=== PATIENT | male | born 1950 | race Caucasian/White ===

== ENCOUNTER 2023-03-05 13:58 | Inpatient (IN) | payer MEDICARE, BC ==
[~2023-03-05] VITALS: Ht 177.8 cm; Wt 72.2 kg
[2023-03-13] VITALS (10 sets, daily range): BP systolic 103–148; BP diastolic 47–68; PULSE 73–121; TEMP 97.2–98.4
[2023-03-13] MEDS ORDERED: LR 1,000 ML IV SCH ×2 (06:00→16:15)
[2023-03-13] MEDS ORDERED: Rocuronium 50 MG/5 ML Multi-Dose VIAL ONE (11:28)
[2023-03-13] MEDS ORDERED: Midazolam 2 MG/2 ML VIAL ONE (11:28)
[2023-03-13] MEDS ORDERED: Lidocaine PF 2% (20 MG/ML) 5 ML VIAL ONE (11:29)
[2023-03-13 12:09] LABS: MEAN CELL VOLUME 97 fl (80.0-100.0); MEAN CORPUSCULAR HEMOGLOBIN 33 pg (27-31); MEAN CORPUSCULAR HGB CONC 34 g/dl (33.0-37.0); MEAN PLATELET VOLUME 9.1 fl (7.4-10.4); PLATELET COUNT 246 K/mm3 (130-400); RED BLOOD COUNT 3.33 M/mm3 (4.20-5.60); REDCELL DISTRIBUTION WIDTH-CV 12.9 % (11.5-14.5)
[2023-03-13 12:10] LABS: HEMATOCRIT 32.4 % (42.0-52.0)
[2023-03-13] MEDS ORDERED: NS 30 ML IV ONE (12:19)
[2023-03-13] MEDS ORDERED: dexAMETHasone 10 MG/ML VIAL ONE ×2 (12:19→13:32)
[2023-03-13 12:28] LABS: ALBUMIN 3.7 gm/dL (3.4-4.8); BILIRUBIN,TOTAL 0.5 mg/dL (0.2-1.2); CREATININE, serum 0.85 mg/dL (0.72-1.25); POTASSIUM 4.3 mmol/L (3.5-4.5); TOTAL PROTEIN 6.9 gm/dL (6.2-8.1)
[2023-03-13] MEDS ORDERED: Celecoxib 200 MG CAP PO SCH (12:30)
[2023-03-13] MEDS ORDERED: metroNIDAZOLE 500 MG/100 ML IVPB IV SCH (12:30)
[2023-03-13] MEDS ORDERED: Gabapentin 100 MG CAP PO SCH (12:30)
[2023-03-13] MEDS ORDERED: Acetaminophen 500 MG TAB PO SCH ×2 (12:30→17:03)
[2023-03-13] MEDS ORDERED: PRIL40 PO (12:43)
[2023-03-13] MEDS ORDERED: NORVASC 10MG10 MG PO (12:43)
[2023-03-13] MEDS ORDERED: MASON NATURAL2000 IU PO (12:44)
[2023-03-13] MEDS ORDERED: FLOMAX 0.40.4 MG/CAP PO (12:44)
[2023-03-13] MEDS ORDERED: NP THYROID60 MG PO (12:44)
[2023-03-13] MEDS ORDERED: Ondansetron 4 MG/2 ML VIAL ONE (13:32)
[2023-03-13] MEDS ORDERED: Topical Skin Adhesive 1 EACH (1 ML) TOP ONE (13:50)
[2023-03-13] MEDS ORDERED: Meperidine 50 MG/ML 1 ML VIAL IV PRN (14:00)
[2023-03-13] MEDS ORDERED: HYDROmorphone 2 MG/1 ML VIAL IV PRN (14:00)
[2023-03-13] MEDS ORDERED: fentaNYL 50 MCG/ML 2 ML VIAL IV PRN (14:00)
[2023-03-13] MEDS ORDERED: droPERidol 2.5 MG/ML 2 ML VIAL IV PRN (14:00)
[2023-03-13] MEDS ORDERED: Morphine 4 MG/ML VIAL IV PRN ×3 (14:00→16:15)
[2023-03-13] MEDS ORDERED: Ondansetron 4 MG/2 ML VIAL IV PRN ×2 (14:00→16:15)
[2023-03-13] MEDS ORDERED: Phenylephrine 10 MG/ML VIAL ONE (14:02)
[2023-03-13] MEDS ORDERED: ePHEDrine 50 MG/ML VIAL ONE (14:21)
[2023-03-13] MEDS ORDERED: fentaNYL 50 MCG/ML 2 ML VIAL ONE (15:47)
[2023-03-13] MEDS ORDERED: oxyCODONE 5 MG TAB PO PRN (16:15)
[2023-03-13] MEDS ORDERED: Ibuprofen 400 MG TAB PO PRN (16:15)
[2023-03-13] MEDS ORDERED: Naloxone 0.4 MG/ML VIAL IV PRN (16:15)
--- NOTE | 2023-03-13 17:20 | NUR ---
PATIENT ADMITED INTO ROOM 349 POSTOP. ORIENTED BUT VERY SEDATED/DROWSY POSTOP. NOTED IRREGULAR, ELEVATED HR RANGING FROM 98-118 ON TELE. 02 @ 3L PER NC WITH SATS IN MID TO UPPER 90'S. ALL OTHER VSS. NO COMPLAINTS OF PAIN OR NAUSEA. IV FLUIDS INFUSING INTO RIGHT FORARM IV. MARCOS TO DD. SCD'S TO BLE. HEAD TO TOE ASSESSMENT COMPLETE. FAMILY AT BEDSIDE. ORIENTED TO ROOM. CALL LIGHT IN REACH.
--- NOTE | 2023-03-13 20:23 | NUR ---
PT IN BED, DROWSY, ASKS IF ITS MARCH. RE-ORIENTED TO PLACE AND TIME. IVF TO RFA INFUSING WITHOUT PROBLEM. HAS MARCOS TO BSD WITH YELLOW URINE. HAS ABD LAP SITES X5 AND SMALL MIDLINE ALL GLUED AND DRY. TELEMETRY AND EKG BOTH SHOW AFIB. PT ON CLEAR LIQUID DIET, WILL ADVANCE TOLERATED AND MORE AWAKE. DENIES PAIN AT THIS TIME.
--- NOTE | 2023-03-13 22:06 | NUR ---
PT MORE AWAKE, HAS TV ON. TAKES SCHEDULED ES TYLENOL WITHOUT PROBLEM. DENIES PAIN AT THIS TIME.
[2023-03-14] VITALS (10 sets, daily range): BP systolic 112–149; BP diastolic 54–71; PULSE 55–81; TEMP 97.4–98.5
--- NOTE | 2023-03-14 02:00 | NUR ---
PT EATING JELLO, NO REPORTS OF PAIN, STATES "JUST SORE".
--- NOTE | 2023-03-14 04:00 | NUR ---
PT AWAKE, EATING PUDDING WITHOUT PROBLEM. INCREASED DIET TO FULL LIQUIDS/BLENDERIZED. NO N/V.
[2023-03-14] MEDS ORDERED: Omeprazole 40 MG **** subs to Pantoprazole 40 MG PO SCH (07:00)
[2023-03-14 07:02] LABS: HEMOGLOBIN 10.8 g/dl (13.5-18.0)
[2023-03-14 07:25] LABS: CALCIUM 8.8 mg/dL (8.4-10.2); CREATININE, serum 0.91 mg/dL (0.72-1.25); MAGNESIUM 1.8 mg/dL (1.6-2.6); PHOSPHOROUS 3.3 mg/dL (2.3-4.7); POTASSIUM 4.2 mmol/L (3.5-4.5)
--- NOTE | 2023-03-14 08:00 | NUR ---
PT RESTING IN BED WITH NO PAIN AT THIS TIME. NANDINI CALLED TO NOTIFY PT CONVERTED BACK TO SINUS RYTHEM FROM AFIB THIS AM AT 0755. JAGDEEP PIZARRO AND DR. CALDERA NOTIFIED. CARDIOLOGY CONSULTED. DEIT ADVANCED TO GENERAL AND TOLERATING WELL. WILL CONTINUE TO [facility].
[2023-03-14] MEDS ORDERED: amLODIPine 10 MG TAB PO SCH (09:00)
[2023-03-14] MEDS ORDERED: Thyroid, Desiccated 60 MG TAB PO SCH (09:00)
--- NOTE | 2023-03-14 10:55 | NUR ---
restuarant crew worker and Student Karlene met with pt to discuss discharge planning. Pt reports he lives in [place] with his , Divina. He sees Dr. Butt and obtains medications from [facility] with no difficulties. He has his daughter, Uma Colby [phone] listed as a contact. Pt would like to complete a DPOA-HC listing his daughter. SW and Student witnessed signature. Original and copies provided. Copy in the chart. Pt reports he has needed assistance with ADLS and has a FWW at home for DME. SW went over PT reccomendations for a FWW and SNF. Pt reports he has a FWW at home and is fine with using this. Pt reported to GARDENIA he has been to [facility] in the past for two months and would like to return. GARDENIA provided the Medicare.gov list. GARDENIA informed she will send his information there. GARDENIA called REENA, Uma and discussed SNF stay. She reports pt has never been to [facility] for rehab, but would like him to go. She confirmed patient does have a FWW at home to utilize. GARDENIA asked about contact information for , Divina. She informed SW that Divina has memory problems and is ill so she is not a good point of contact. GARDENIA informed dtr that pt listed her as primary for DPOA-HC. GARDENIA Student sent [facility] referral via fax. Discharge Plan: SNF
[2023-03-14] MEDS ORDERED: Magnesium Sulfate 1 GM/100 ML IV Soln IV SCH (11:00)
--- NOTE | 2023-03-14 16:36 | NUR ---
SW was notified patient is able to go to [facility] for SNF on Saturday, unable to transfer on weekend. [facility] is requesting family cigar packer and picker paperwork to complete for them. SW was notified by patient's nurse patient is looking at discharge on Saturday. SW was contacted by patient's daughter, Uma. Uma stated she would go cigar packer and picker paperwork from the [facility] to complete with the patient. [facility] notified the director social welfare that patient will need a DPOA-HC on file. will fax the one completed earlier to [facility] tomorrow. [facility] wanted to know if the family wanted to transport or if they wanted the facility to transport. Discharge plan: SNF
[2023-03-15] VITALS (12 sets, daily range): BP systolic 103–181; BP diastolic 67–86; PULSE 40–77; TEMP 97.3–97.9
[2023-03-15 06:28] LABS: BASO % 0.1 % (0.0-2.0); GRAN # 11.4 K/mm3 (1.4-6.5); GRAN % 86.6 % (42.2-75.2); HEMOGLOBIN 12.3 g/dl (13.5-18.0); LYMPH # 0.7 K/mm3 (1.2-3.4); LYMPH % 5.2 % (20.0-51.0); MEAN CELL VOLUME 98 fl (80.0-100.0); MEAN CORPUSCULAR HEMOGLOBIN 33 pg (27-31); MEAN CORPUSCULAR HGB CONC 34 g/dl (33.0-37.0); MEAN PLATELET VOLUME 9.2 fl (7.4-10.4); MONO % 7.7 % (1.7-9.3); RED BLOOD COUNT 3.74 M/mm3 (4.20-5.60); REDCELL DISTRIBUTION WIDTH-CV 13.1 % (11.5-14.5)
[2023-03-15 06:32] LABS: HEMATOCRIT 36.6 % (42.0-52.0)
[2023-03-15 06:33] LABS: PLATELET COUNT 389 K/mm3 (130-400)
[2023-03-15 06:49] LABS: CALCIUM 9.1 mg/dL (8.4-10.2); CREATININE, serum 0.77 mg/dL (0.72-1.25); POTASSIUM 3.9 mmol/L (3.5-4.5)
[2023-03-15 07:08] LABS: MAGNESIUM 1.9 mg/dL (1.6-2.6)
[2023-03-15 07:28] LABS: TSH w REFLEX 5.654 uIU/mL (0.350-4.940)
--- NOTE | 2023-03-15 08:01 | NUR ---
NURSING SHIFT ASSESSMENT COMPLETED. THE PATIENT IS VERY FORGETFUL, CONFUSED ON WHAT TIME IT IS AND DOES SET THE BED ALARM OFF FREQUENTLY. THE PATIENT DOES HAVE A POOR APPETITE. NO N/V NOTED. SOTALOL ORDERED FOR 10 PM. QTC 446 AND AN EKG IS ORDERED FOR IN THE MORNING. THE PATIENT IS CURRENTLY SR. BED IN LOW POSITION, BED ALARM ON, CALL LIGHT WITHIN REACH.
--- NOTE | 2023-03-15 08:27 | NUR ---
PT RESTING IN BED WITH NO PAIN. WEAK AND UNSTEADY GAIT WITH 1 ASSIST AND WALKER TO [facility]. PT A/O X4 BUT IMPULSIVE. BED ALARM ON. DRY SCABS ON PT UPPER BACK. HR IRREGULAR. WILL CONTINUE TO MONITOR.
--- NOTE | 2023-03-15 10:38 | NUR ---
Several visit attempts; Patient continued to sleep. Corporate Development Officer left card offering God's blessings and information regarding the availability of Spiritual Care at [facility].
--- NOTE | 2023-03-15 16:59 | NUR ---
leather production worker contacted patient's family to discuss patient's plan for after SNF. Patient's daughter expressed it will determine how he does at SNF but he has been falling more frequently at home and they are concerned he may need LTC. GARDENIA expressed she would be completing a Care Assessment in case patient is staying longer than 30 days at [facility]. Uma, patient's daughter, denied patient expressing any depression recently. Uma reports patient has fallen about 1-2 times a week for the last 6 months. No mental health diagnosis. GARDENIA met with patient and completed a CARE assessment with him for his stay at the [facility]. Patient signed one form and requested his daughter sign the other form as he had difficulty signing this form. GARDENIA met with patient's daughter/DPOA-, whom signed the release for the hospital to speak with the [facility] on aging. GARDENIA was notified Uma obtained the packet from [facility] to complete and she would turn it into them. Uma reports [facility] would need to fish bait picker patient at 9 am on Saturday as that was the only time they have transportation available otherwise they would need to fish bait picker on Saturday. GARDENIA notified the PA of this infomration. Discharge plan: SNF
[2023-03-16] VITALS (396 sets, daily range): BP systolic 5–158; BP diastolic 44–85; PULSE 36–80; TEMP 34.6–34.8; O2SAT 57–100
--- NOTE | 2023-03-16 01:12 | NUR ---
PT MOVED TO ROOM 326 TO BE CLOSER TO NURSES STATION DUE TO NIGHT TIME CONFUSION.
[2023-03-16] MEDS ORDERED: LR 1,000 ML IV SCH ×2 (05:45→16:15)
[2023-03-16 06:26] LABS: HEMATOCRIT 37.1 % (42.0-52.0); HEMOGLOBIN 12.9 g/dl (13.5-18.0); MEAN CELL VOLUME 95 fl (80.0-100.0); MEAN CORPUSCULAR HEMOGLOBIN 33 pg (27-31); MEAN CORPUSCULAR HGB CONC 35 g/dl (33.0-37.0); MEAN PLATELET VOLUME 9.7 fl (7.4-10.4); PLATELET COUNT 381 K/mm3 (130-400); RED BLOOD COUNT 3.89 M/mm3 (4.20-5.60)
--- NOTE | 2023-03-16 06:45 | NUR ---
THIS RN CONTACTED BY PT'S ATTENDING NURSE, DENNIS. CONCERN FOR AMS, LETHARGY, AND DIAPHORESIS. HOSPITALIST, PINKY, AND SUPERINTENDENT GREENS, MYRON, NOTIFIED BY THIS RN. SEE CRITICAL ASSESSMENT TEAM RECORD.
[2023-03-16 06:46] LABS: CALCIUM 9.4 mg/dL (8.4-10.2); CREATININE, serum 1.44 mg/dL (0.72-1.25); POTASSIUM 4.4 mmol/L (3.5-4.5)
--- NOTE | 2023-03-16 07:10 | NUR ---
PT with increased O2 needs this am, up to 4L, lethargic, diaphoretic, HR low, having moderate amt of black liquid regurg in back of throat. Dr Tay notified per phone, IVF ordered and made NPO. zofran given IV for nausea. EKG this am showing HB, increased SOB, pt unable to cough out secretions, too weak, this RN concerned pt may need closer monitoring, CAT called. RN DIGESTIVE Wayne Walls PA and housecleaner floor Ariane GARCIA, all to bedside,will cont. to monitor.
[2023-03-16 07:44] LABS: BAND 6 % (0-10); LYMPHOCYTE 7 % (20.0-51.0); NEUTROPHILS 79 % (42.0-75.2)
--- NOTE | 2023-03-16 08:00 | NUR ---
PATIENT IS CONFUSED AND DROWSY. PATIENT RESPONDS TO VERBAL STIMULI BUT OFTEN GIVES THE SAME "YES" RESPONSE TO MOST QUESTIONS. NOTED IRREGULAR HR WITH BRADYCARDIA IN THE 40'S ON TELE. PATIENT HAS HX OF A-FIB AND HAD A LOOP RECORDER PLACED YESTERDAY. HE IS ALSO REPORTED TO BE ON DAY 3 OF SOTOLOL. 02 @ 4L PER NC WITH SATS IN LOW 90'S. PATIENT'S LUNG SANCHEZ ARE COURSE WITH WET/WEAK COUGH. SUCTION PRN. NOTED RESP OF 22 AND DYSPNEA WITH ACTIVITY. REPOSITIONED PATIENT UP IN BED. IDENTIFICATION PRINTING MACHINE SETTER REPORTED CONFUSION OVER NIGHT AND DARK EMESIS. NPO. IV FLUIDS INFUSING VIA PUMP INTO RIGHT FORARM IV. MARCOS TO DD WITH SMALL AMOUNTS OF URINE NOTED. HEAD TO TOE ASSESSMENT COMPLETE. SCD'S TO BLE. CALL LIGHT IN REACH. BED ALARM ON. NO FAMILY AT BEDSIDE.
--- NOTE | 2023-03-16 08:30 | NUR ---
NOTIFIED HOSPITALIST ABOUT DARK EMESIS AND NPO STATUS OVER NIGHT. HOLDING AM MEDS UNTIL SURGEON SEE'S PATIENT PER . HOSPITALIST TO ROUND SOON, AWAITING ORDERS.
--- NOTE | 2023-03-16 09:50 | NUR ---
RADIOLOGY AT BEDSIDE TO OBTAIN CXR
--- NOTE | 2023-03-16 10:00 | NUR ---
16F MARCOS PLACED WITH SOME DIFFICULTY GETTING THROUGH THE PROSTATE PATIENT WAS BEARING DOWN DURING PLACEMENT. PATIENT REMAINS CONFUSED. NOTED SMALL AMOUNTS OF PINK TINGED URINE, UA SENT PER ORDERS.
[2023-03-16 11:01] LABS: PH 5.5 (5.0-8.5); URINE APPEARANCE Cloudy (CLEAR/HAZY); URINE BLOOD 3+ (NEGATIVE); URINE COLOR Red (YELLOW); URINE GLUCOSE Negative (NEGATIVE); URINE KETONE Negative (NEGATIVE); URINE NITRATE Negative (NEGATIVE); URINE PROTEIN(semi-quant) 2+ (BEGATIVE); URINE UROBILINOGEN 0.2 E.U/dL (0.2-1.0)
--- NOTE | 2023-03-16 11:20 | NUR ---
NOTIFIED SURGEON MARKET CONSULTANT WITH PATIENT STATUS UPDATE. AWAITING RETURN CALL AND/OR ROUNDS.
[2023-03-16 11:24] LABS: URINE RBC >50 /hpf (0-2)
[2023-03-16 11:25] LABS: COLLECTION METHOD CLEAN CATCH
--- NOTE | 2023-03-16 11:50 | NUR ---
SPOKE WITH , SEE NEW ORDERS. CONTACT BUTADIENE CONVERTER OPERATOR TO ARRANGE EMS TRANSPORT TO [facility] FOR CT SCAN. BUTADIENE CONVERTER OPERATOR TO ARRANGE TRANSPORT.
--- NOTE | 2023-03-16 12:45 | NUR ---
EMS HERE AND PATIENT TRANSPORTED TO [facility] FOR CHEST/ABD/PELVIC CT. PATIENT NOW OFF FLOOR.
--- NOTE | 2023-03-16 13:10 | NUR ---
RN AND CHARGE NURSE AT BEDSIDE TO PLACE NG PER , RIGHT BEFORE INSERTING THE RADIOLOGIST NOTIFIED RN DIRECTLY FOR CONCERNS OF A RUQ INTERNAL HERNIA & SIGNIFICANT BOWL OBSTRUCTION WITH SEVERE ABD DISTENTION. RADIOLOGIST CONTINUES TO SAY PATIENT IS VERY HIGH RISK FOR ASPIRATION HE IS FULL OF FLUID & FREE AIR ALL THE WAY UP TO HIS ESOPHAGUS. RN'S STOPPED AND CALLED SURGEON. SURGEON CALL RADIOLOGIST DIRECTLY. PLANS FOR EMERGENT SURGERY. CALLED IN OR TEAM AND PATIENT FAMILY UPDATED BY RN AND . SEE NEW ORDERS.
[2023-03-16] MEDS ORDERED: Rocuronium 50 MG/5 ML Multi-Dose VIAL ONE ×3 (14:11→16:17)
[2023-03-16] MEDS ORDERED: fentaNYL 50 MCG/ML 2 ML VIAL ONE (14:11)
[2023-03-16] MEDS ORDERED: Ondansetron 4 MG/2 ML VIAL ONE (14:11)
[2023-03-16] MEDS ORDERED: Lidocaine PF 2% (20 MG/ML) 5 ML VIAL ONE (14:11)
[2023-03-16] MEDS ORDERED: Succinylcholine PF 100 MG/5 ML SYRINGE/POLY AMP IV ONE (14:11)
--- NOTE | 2023-03-16 14:15 | NUR ---
PATIENT GOING DOWN TO OR VIA BED. FAMILY AT BEDSIDE. CONSENT ON CHART. PRE-OP FLUIDS AND IV ABX INFUSING INTO RIGHT FORARM IV.
[2023-03-16] MEDS ORDERED: ePHEDrine 50 MG/ML VIAL ONE (16:11)
--- NOTE | 2023-03-16 16:11 | NUR ---
RN NOTIFIED OF TRANSFER TO ICU POSTOP. CALLED ICU CHARGE TO GIVE REPORT BUT UNAVAILABLE AT THIS TIME AND WILL CALL BACK FOR REPORT SHORTLY.
--- NOTE | 2023-03-16 16:50 | NUR ---
GEORGINA IN ICU CALLED BACK, REPORT GIVEN. PATIENT PERSONAL BELONGINGS TO ICU BED 1
[2023-03-16] MEDS ORDERED: NS 1,000 ML IV SCH (17:00)
[2023-03-16] MEDS ORDERED: fentaNYL 50 MCG/ML 2 ML VIAL IV PRN (17:15)
[2023-03-16] MEDS ORDERED: Naloxone 0.4 MG/ML VIAL IV PRN (17:15)
[2023-03-16] MEDS ORDERED: fentaNYL 100 ML IV SCH (17:15)
[2023-03-16] MEDS ORDERED: LR 500 ML IV ONE (18:30)
--- NOTE | 2023-03-16 18:30 | NUR ---
Patient brought over by PACU after a reduction of an internal hernia; patient was brought over on ventilator and was sedated. Patient was accompanied by KIMBERLEY Phillips, and two PACU/OR nurses. Patient's ET tube was approx 24 at the teeth and [facility] set up ventilator and attached patient to vent; per Dr. Silverio, patient's G-tube was set to LIS. Patient came over with a Olsen catheter in place and a peripheral INT. Patient had central line placed over in the OR in the right internal jugular; ART line was attempted but ultimately not able to be placed. Patient was hypothermic upon arrival and a rectal temp probe was inserted and patient placed on warmer. Patient also started on fent and prop for sedation. Upon starting sedation patient's blood pressure dropped; fluid bolus was initiated to maintain blood pressure. Patient's vital signs were otherwise within normal limits.
--- NOTE | 2023-03-16 19:37 | NUR ---
THIS RN SPOKE WITH PATIENT'S DAUGHTER KIM. CONFIRMED CODE STATUS DNR WITH AIRWAY MANAGEMENT/INTUBATION. FAMILY DOES NOT WANT PATIENT TO RECEIVE CPR/CHEST COMPRESSIONS. VERIFIED BY RADHA ERICKSON. HOSPITALIST, PINKY, NOTIFIED. ORDER CHANGED.
--- NOTE | 2023-03-16 19:38 | NUR ---
BIJU confirmed as daughter, Uma. Second point of contact is her , Hang Colby. His number is [phone].
--- NOTE | 2023-03-16 19:40 | NUR ---
Received report from RADHA Ha. Patient resting quietly in bed. Remains on ventilator, tolerating well. Vitals within normal limits; he is finishing a 500mL fluid bolus at this time. Continues to receive fentanyl and propofol drips, see IV drip titrations.
[2023-03-16 20:44] LABS: ARTERIAL BLD GAS O2 SATURATION 99.2 % (92-100); ARTERIAL BLD GAS TCO2 CT 27.5; ARTERIAL BLOOD GAS HCO3 26.5 meq/L (22-26); ARTERIAL BLOOD GAS PCO2 32.4 mmHg (35-45); ARTERIAL BLOOD GAS PO2 223.6 mmHg (80-100); ARTERIAL BLOOD GAS pH 7.53 (7.35-7.45)
[2023-03-16] MEDS ORDERED: Dextrose 50% Water 25 GM/50 ML SYRINGE IV PRN (20:45)
[2023-03-16] MEDS ORDERED: Dextrose (Glucose) 15 GM (4 x 3.75 GM) Chewable TABLET PACK PO PRN (20:45)
[2023-03-16] MEDS ORDERED: Glucagon 1 MG VIAL IM PRN (20:45)
--- NOTE | 2023-03-16 21:30 | NUR ---
Patient's temperature up to 98.1F. Bear hugger taken off at this time.
[2023-03-16 22:31] LABS: ARTERIAL BLD GAS O2 SATURATION 95.2 % (92-100); ARTERIAL BLD GAS TCO2 CT 28.5; ARTERIAL BLOOD GAS HCO3 27.4 meq/L (22-26); ARTERIAL BLOOD GAS PCO2 36.6 mmHg (35-45); ARTERIAL BLOOD GAS PO2 78.4 mmHg (80-100); ARTERIAL BLOOD GAS pH 7.49 (7.35-7.45)
[2023-03-17] VITALS (991 sets, daily range): BP systolic 100–119; BP diastolic 49–59; PULSE 54–62; TEMP 99–99.9; O2SAT 82–100
[2023-03-17] MEDS ORDERED: Insulin Aspart (NovoLOG) SQ SCH
[2023-03-17] MEDS ORDERED: LR 1,000 ML IV ONE (00:30)
[2023-03-17 05:00] LABS: MEAN CORPUSCULAR HGB CONC 33 g/dl (33.0-37.0); MEAN PLATELET VOLUME 9.6 fl (7.4-10.4); RED BLOOD COUNT 2.79 M/mm3 (4.20-5.60); REDCELL DISTRIBUTION WIDTH-CV 13.5 % (11.5-14.5)
[2023-03-17 05:03] LABS: HEMATOCRIT 27.9 % (42.0-52.0); HEMOGLOBIN 9.3 g/dl (13.5-18.0); MEAN CELL VOLUME 100 fl (80.0-100.0); MEAN CORPUSCULAR HEMOGLOBIN 33 pg (27-31); PLATELET COUNT 228 K/mm3 (130-400)
[2023-03-17 05:14] LABS: GASTROCCULT POSITIVE; pH GASTRIC CONTENTS 4
--- NOTE | 2023-03-17 05:15 | NUR ---
PT RESPONDING TO PAINFUL STIMULI. PT QUICKLY RESPONDED TO SMALL SEDATION TITRATION BY FLEXING LEGS; LEGS WERE STIFF AND PT NOTED TO BE GRIMACING. NO FURTHER SEDATION VACATION ATTEMPTED.
[2023-03-17 05:17] LABS: CALCIUM 7.9 mg/dL (8.4-10.2); CREATININE, serum 1.99 mg/dL (0.72-1.25); MAGNESIUM 1.8 mg/dL (1.6-2.6); POTASSIUM 4.3 mmol/L (3.5-4.5)
[2023-03-17 05:40] LABS: BAND 4 % (0-10); LYMPHOCYTE 6 % (20.0-51.0); NEUTROPHILS 81 % (42.0-75.2); PLATELET ESTIMATE NORMAL (NORMAL)
[2023-03-17 05:41] LABS: HYPOCHROMIA 1+
--- NOTE | 2023-03-17 07:00 | NUR ---
Report received from RADHA Valentine; patient currently sedated on ventilator with fent and prop running along with fluids through his right IJ. Patient has a peripheral INT, Olsen catheter, G-tube, and an ET tube in place as well; no other lines or tubes are in place at this time. Patient is also on levophed as he has been hypotensive; patient has remained in a sinus rhythm this morning, at times bradycardic in the 50s. Patient is no longer hypothermic and is no longer on the warmer. Patient is responsive but does not follow commands.
[2023-03-17] MEDS ORDERED: Heparin 5,000 UNITS/ML 1 ML VIAL SQ SCH (08:00)
[2023-03-17 10:15] LABS: ARTERIAL BLD GAS O2 SATURATION 91.4 % (92-100); ARTERIAL BLD GAS TCO2 CT 28.5; ARTERIAL BLOOD GAS BASE EXCESS 3.2 (-2-2); ARTERIAL BLOOD GAS HCO3 27.3 meq/L (22-26); ARTERIAL BLOOD GAS PCO2 39.8 mmHg (35-45); ARTERIAL BLOOD GAS PO2 63.1 mmHg (80-100); ARTERIAL BLOOD GAS pH 7.45 (7.35-7.45)
[2023-03-17] MEDS ORDERED: Magnesium Sulfate 4% 50 ML IV ONE (10:15)
[2023-03-17] MEDS ORDERED: 1: LR 1,000 ML 2: NS 1,000 ML IV SCH (10:15)
--- NOTE | 2023-03-17 17:15 | NUR ---
Put patient's sedation on standby to assess responsiveness and ability to follow commands; patient responds to voice and tries to open eyes, however, patient does not appropriately follow commands and appears agitated when sedation is decreased.
--- NOTE | 2023-03-17 20:00 | NUR ---
PT RESTING IN BED AND IV FLUIDS, MEDS AND VENT SETTINGS ARE NOTED PER REPORT. PT IS ABLE TO OPEN EYES AT THIS TIME TO RAISED VOICE, BUT UNABLE TO FOLLOW COMMANDS. KNEES ARE NOTED TO BE RAISED UP AND REMAIN THERE. VSS AND ASSESSMENTS COMPLETED AT THIS TIME. LAP SITES X 5 REPORTED AND 4 WERE VISUALIZED TO BE PIPE FITTER AND WELL APPROXIMATED. 1 LAP SITE REPORTED UNDER CLEAN GUAZE DRESSING FOR MIDLINE INCISION. BED IN LOW POSITION, CALL LIGHT WITHIN REACH, AND RT AT BEDSIDE.
--- NOTE | 2023-03-17 22:39 | NUR ---
AT 2220 PT O2 SAT NOTED TO BE IN THE 80'S. SUCTIONING PROVIDED AND RT CALLED FOR ASSISTANCE. PT NOTED TO BE BITING ON THE ET TUBE AND OPENING EYES AT THIS TIME. PROPOFOL TITRATED PER ORDERS. PT REPOSITIONED TO SUPINE POSITION, BUT RAISES LEGS AND TURNS TO LEFT SIDE ON HIS OWN. WILL CONTINUE TO TURN PT Q2 HRS
[2023-03-18] VITALS (685 sets, daily range): BP systolic 104–154; BP diastolic 45–69; PULSE 62–134; TEMP 98.8–100.4; O2SAT 66–100
[2023-03-18 04:40] LABS: MEAN CELL VOLUME 98 fl (80.0-100.0); MEAN CORPUSCULAR HGB CONC 34 g/dl (33.0-37.0); MEAN PLATELET VOLUME 10.1 fl (7.4-10.4); PLATELET COUNT 186 K/mm3 (130-400); RED BLOOD COUNT 2.66 M/mm3 (4.20-5.60); REDCELL DISTRIBUTION WIDTH-CV 13.6 % (11.5-14.5)
[2023-03-18 04:45] LABS: HEMATOCRIT 26.1 % (42.0-52.0); HEMOGLOBIN 8.8 g/dl (13.5-18.0); MEAN CORPUSCULAR HEMOGLOBIN 33 pg (27-31)
[2023-03-18 04:54] LABS: CALCIUM 7.8 mg/dL (8.4-10.2); CREATININE, serum 1.22 mg/dL (0.72-1.25); MAGNESIUM 2.2 mg/dL (1.6-2.6); POTASSIUM 3.6 mmol/L (3.5-4.5)
[2023-03-18] MEDS ORDERED: Acetaminophen 325 MG TAB PO PRN (05:00)
[2023-03-18] MEDS ORDERED: *Potassium Replacement Protocol MC SCH (05:30)
[2023-03-18] MEDS ORDERED: Potassium Chloride 100 ML IV SCH (05:30)
[2023-03-18 05:38] LABS: BAND 17 % (0-10); EOSINOPHIL 1 % (0-4); LYMPHOCYTE 5 % (20.0-51.0); NEUTROPHILS 76 % (42.0-75.2); PLATELET ESTIMATE NORMAL (NORMAL)
--- NOTE | 2023-03-18 06:04 | NUR ---
PT'S PULSE INCREASING TO THE 140'S, O2 SAT IS 88-91%. PT IS RESTLESS WITH LEGS MOVING UP AND DOWN IN THE BED. HE IS ALERT, BUT UNABLE TO FOLLOW COMMANDS. NO CHANGE IN VITALS WITH TALKING OR CALMING TECHNIQUES AT THIS TIME. PROPOFOL AND FENTANYL RESTARTED TO ASSIST WITH VITALS.
--- NOTE | 2023-03-18 06:44 | NUR ---
PLACED PT IN CPAP 5 PS 5. 50%.
--- NOTE | 2023-03-18 07:00 | NUR ---
Report received from RADHA Lopez; patient currently on weaning trial with vent on CPAP mode; patient was left on minimal amount of fentanyl as patient was not tolerating the trial. Patient becoming increasingly restless as report is being given and heart rate has become very labile. Patient's blood pressure is also going up and patient is opening eyes but not following commands, nor does patient respond to calming techniques. Will order EKG to check rhythm. Patient still has G-tube in place, as well as Olsen catheter; patient's peripheral INT and right IJ also remain in place.
--- NOTE | 2023-03-18 07:40 | NUR ---
PLACED PT BACK IN AC PREVIOSU SETTING. PT IN AFB RVR.
[2023-03-18] MEDS ORDERED: D5LR 1,000 ML IV SCH (09:00)
[2023-03-18] MEDS ORDERED: Amiodarone 450 MG in D5W Excel 250 ML IV SCH ×2 (09:00→14:50)
[2023-03-18 12:21] LABS: PHOSPHOROUS 2.3 mg/dL (2.3-4.7)
[2023-03-18] MEDS ORDERED: MULTIVITAMINS FOLIC ACID IV SCH (16:00)
[2023-03-18] MEDS ORDERED: [UNRECOGNIZED DRUG - OTHER] IV SCH (16:00)
[2023-03-18] MEDS ORDERED: TPN IV SCH ×2 (16:00)
[2023-03-18] MEDS ORDERED: THIAMINE IV SCH (16:00)
--- NOTE | 2023-03-18 17:30 | NUR ---
Sedation vacation attempted this afternoon with the same results as this morning. Patient wakes up and is alert but will not follow commands.
[2023-03-18 21:12] LABS: GASTROCCULT NEGATIVE; pH GASTRIC CONTENTS 4
[2023-03-19] VITALS (368 sets, daily range): BP systolic 101–154; BP diastolic 47–62; PULSE 61–86; TEMP 99–101.1; O2SAT 56–100
--- NOTE | 2023-03-19 05:15 | NUR ---
PATIENT IS OVER BREATHING VENTILATOR, SPO2 DROPPED TO 84%
--- NOTE | 2023-03-19 05:33 | NUR ---
CURRENTLY ATTEMPTING TO DECREASE PT SEDATION. PT AT ONE POINT GOT DOWN TO 79% SPO2 DUE TO OVERBREATING THE VENT. PT NOW SITTING AT 94%, ONLY OCCAISIONALLY OVER BREATHING.
[2023-03-19 06:22] LABS: MEAN CELL VOLUME 102 fl (80.0-100.0); MEAN CORPUSCULAR HGB CONC 32 g/dl (33.0-37.0); MEAN PLATELET VOLUME 10.4 fl (7.4-10.4); PLATELET COUNT 177 K/mm3 (130-400); RED BLOOD COUNT 2.36 M/mm3 (4.20-5.60)
[2023-03-19 06:31] LABS: HEMOGLOBIN 7.7 g/dl (13.5-18.0); MEAN CORPUSCULAR HEMOGLOBIN 33 pg (27-31)
[2023-03-19 06:41] LABS: CALCIUM 7.8 mg/dL (8.4-10.2); CREATININE, serum 0.94 mg/dL (0.72-1.25); MAGNESIUM 2.5 mg/dL (1.6-2.6); POTASSIUM 3.8 mmol/L (3.5-4.5)
[2023-03-19 06:58] LABS: BAND 12 % (0-10); EOSINOPHIL 1 % (0-4); LYMPHOCYTE 3 % (20.0-51.0); NEUTROPHILS 75 % (42.0-75.2)
[2023-03-19 06:59] LABS: PLATELET ESTIMATE NORMAL (NORMAL)
--- NOTE | 2023-03-19 07:00 | NUR ---
Report received from RADHA Owen; patient currently sedated on ventilator with fentanyl and propofol running for sedation through his right internal jugular central line. Patient also has IV fluids, TPN, and amiodarone running through the central line. Patient has a peripheral INT, Olsen catheter, G-tube and ET tube in place. G-tube is still hooked up to LIS. Patient has been running a low-grade temperature this morning, and heart rate has been irregular. Patient's O2 saturations are hovering around 90%; FiO2 was increased overnight and weaning trial was not done this morning as patient's FiO2 was 70%.
[2023-03-19] MEDS ORDERED: Furosemide 40 MG/4 ML VIAL IV ONE (08:30)
[2023-03-19] MEDS ORDERED: Pantoprazole 40 MG in NS 10 ML IV SCH (09:00)
[2023-03-19 09:04] LABS: ARTERIAL BLD GAS O2 SATURATION 89.8 % (92-100); ARTERIAL BLOOD GAS BASE EXCESS 0.3 (-2-2); ARTERIAL BLOOD GAS HCO3 26.4 meq/L (22-26); ARTERIAL BLOOD GAS PCO2 50.6 mmHg (35-45); ARTERIAL BLOOD GAS PO2 60.1 mmHg (80-100); ARTERIAL BLOOD GAS pH 7.34 (7.35-7.45)
--- NOTE | 2023-03-19 09:08 | NUR ---
environmental services worker provided CARE assessment certificate to patient in his room on table as he is on a ventilator. SW faxed clinical updates to [facility]
[2023-03-19] MEDS ORDERED: Iohexol 300 - 100 ML VIAL IV ONE (14:40)
[2023-03-19] MEDS ORDERED: Multivitamins 1 VIAL,Folic Acid 1 MG,Thiamine 200 MG in TPN (Clinimix-E 8%/14%) 1,000 ML IV SCH (16:00)
--- NOTE | 2023-03-19 18:05 | NUR ---
Sedation vacation did this morning instead of afternoon, as patient was going to be put on a weaning trial. Patient's oxygen levels had increased overnight, and patient was not put on weaning trial. While on the sedation vacation, patient was responsive but not following commands.
--- NOTE | 2023-03-19 19:15 | NUR ---
Received report from RADHA Ha. Patient remains on ventilator, tolerating well. Responds to painful stimuli. Does not follow verbal commands. Rectal temp of 99.9F; all other vitals within normal limits. Continues to receive fentanyl, propofol, and amio drips, see IV drip titrations.
[2023-03-20] VITALS (344 sets, daily range): BP systolic 88–104; BP diastolic 44–59; PULSE 56–80; TEMP 36.9–37.8; O2SAT 39–100
--- NOTE | 2023-03-20 02:23 | NUR ---
RT UNAVAILABLE AT THIS TIME DUE TO CRITICAL PT IN ICU.
[2023-03-20 04:48] LABS: MEAN CELL VOLUME 104 fl (80.0-100.0); MEAN CORPUSCULAR HGB CONC 32 g/dl (33.0-37.0); MEAN PLATELET VOLUME 9.9 fl (7.4-10.4); PLATELET COUNT 167 K/mm3 (130-400); RED BLOOD COUNT 2.32 M/mm3 (4.20-5.60); REDCELL DISTRIBUTION WIDTH-CV 14.5 % (11.5-14.5)
[2023-03-20 04:52] LABS: HEMATOCRIT 24.2 % (42.0-52.0); HEMOGLOBIN 7.7 g/dl (13.5-18.0); MEAN CORPUSCULAR HEMOGLOBIN 33 pg (27-31)
[2023-03-20 05:01] LABS: CALCIUM 7.8 mg/dL (8.4-10.2); CREATININE, serum 1.12 mg/dL (0.72-1.25); MAGNESIUM 2.6 mg/dL (1.6-2.6); PHOSPHOROUS 3.2 mg/dL (2.3-4.7)
[2023-03-20 05:11] LABS: ARTERIAL BLD GAS O2 SATURATION 90.2 % (92-100); ARTERIAL BLD GAS TCO2 CT 25.5; ARTERIAL BLOOD GAS BASE EXCESS -2.8 (-2-2); ARTERIAL BLOOD GAS HCO3 23.9 meq/L (22-26); ARTERIAL BLOOD GAS PO2 63.9 mmHg (80-100); ARTERIAL BLOOD GAS pH 7.28 (7.35-7.45)
[2023-03-20 06:05] LABS: BAND 30 % (0-10); LYMPHOCYTE 5 % (20.0-51.0); NEUTROPHILS 56 % (42.0-75.2); PLATELET ESTIMATE NORMAL (NORMAL)
--- NOTE | 2023-03-20 06:34 | NUR ---
E-CARE DOCTOR STRAIGHT KNIFE MACHINE CUTTER NOTIFIED OF ABG RESULTS. E-CARE DOCTOR ADVISED VENT SETTING BE CHANGED TO VT 490 RR 22 WITH A REPEAT ABG.
--- NOTE | 2023-03-20 07:00 | NUR ---
Report received from RADHA Valentine. Pt intubated and sedated. No s/s discomfort. Able to wake and follow commands; tolerating ventilator well. Bilateral soft wrist restraints in place for line protection. FC to dependent drainage. PEG tube to LIS.
[2023-03-20] MEDS ORDERED: Heparin 5,000 UNITS/ML 1 ML VIAL SQ SCH (09:32)
[2023-03-20 09:35] LABS: ARTERIAL BLD GAS O2 SATURATION 94.2 % (92-100); ARTERIAL BLD GAS TCO2 CT 23.4; ARTERIAL BLOOD GAS HCO3 22.2 meq/L (22-26); ARTERIAL BLOOD GAS PCO2 40.1 mmHg (35-45); ARTERIAL BLOOD GAS PO2 69.3 mmHg (80-100); ARTERIAL BLOOD GAS pH 7.36 (7.35-7.45)
--- NOTE | 2023-03-20 13:58 | NUR ---
Bronchoscopy done by Dr. Allen from [id number]. This nurse, AnandRN, and DANIKA Goldstein at the bedside through out procedure. Pt tolerated well; vital signs remained within range. Bronchial washing sample collected and taken to lab. Pt's daughter Uma grimes.
--- NOTE | 2023-03-20 14:39 | NUR ---
traffic worker faxed clinical updates to [facility]. During rounding, Dr. Yossi Allen discussed with family about prognosis and potentially continuing cares until Saturday, then discuss next step if prognosis remains the same. Pt verbalized understanding.
[2023-03-20] MEDS ORDERED: Multivitamins 1 VIAL,Folic Acid 1 MG,Thiamine 200 MG in TPN (Clinimix-E 8%/14%) 1,000 ML IV SCH (16:00)
--- NOTE | 2023-03-20 18:35 | NUR ---
Upon assessment pt no longer responding to painful stimuli and not following commands. Pupils only very slightly reactive. Sedation turned off at this time. FRANKLIN Diaz notified of change in status at this time. Emily would like sedation turned off at this time. Will wait 2 hours to see if pt's cognition improves. If no improvement then will get CT of head.
--- NOTE | 2023-03-20 19:05 | NUR ---
Received report from Marissa.
--- NOTE | 2023-03-20 19:45 | NUR ---
Patient's sedation on standby since approximately 1845 to determine mentation. At this time, patient is opening eyes spontaneously and pulling extremities towards chest. He is not following commands. Pupils equal and sluggish but are reactive to light.
--- NOTE | 2023-03-20 21:00 | NUR ---
Patient resting quietly in bed. Remains on ventilator, tolerating well. Vitals within normal limits. Continues to receive fentanyl, propofol, and amio drips, see IV drip titrations.
[2023-03-20] MEDS ORDERED: Iohexol 300 - 100 ML VIAL IV ONE (21:41)
[2023-03-20] MEDS ORDERED: NS 50 ML IV SCH (21:41)
--- NOTE | 2023-03-20 21:55 | NUR ---
PATIENT TAKEN FOR CT HEAD, ABD, AND PELVIS AT 2127, RETURNING AT 2148. REQUIRED THREE TOTAL STAFF FOR TRANSPORT. PT TOLERATED WELL.
--- NOTE | 2023-03-20 23:20 | NUR ---
RT HERE TO ASSIST RN WITH TRANSPORT TO CT.
[2023-03-21] VITALS (313 sets, daily range): BP systolic 88–151; BP diastolic 43–84; PULSE 46–80; TEMP 37.3–37.8; O2SAT 94–100
--- NOTE | 2023-03-21 01:05 | NUR ---
GURGLING NOTED, AIR ADDED TO PT CUFF. CUFF PRESSURE VERIFIED WITH CUFFALTOR.
[2023-03-21 05:20] LABS: BASO % 0.2 % (0.0-2.0); EOS # 0.2 K/mm3 (0.0-0.7); EOS % 1.2 % (0.0-4.0); GRAN # 13.3 K/mm3 (1.4-6.5); GRAN % 86.5 % (42.2-75.2); LYMPH # 0.5 K/mm3 (1.2-3.4); LYMPH % 3.1 % (20.0-51.0); MEAN CELL VOLUME 104 fl (80.0-100.0); MEAN CORPUSCULAR HGB CONC 31 g/dl (33.0-37.0); MEAN PLATELET VOLUME 10.3 fl (7.4-10.4); MONO # 1.2 K/mm3 (0.1-0.6); MONO % 7.8 % (1.7-9.3); PLATELET COUNT 169 K/mm3 (130-400); REDCELL DISTRIBUTION WIDTH-CV 14.5 % (11.5-14.5)
[2023-03-21 05:31] LABS: ARTERIAL BLD GAS O2 SATURATION 96.3 % (92-100); ARTERIAL BLD GAS TCO2 CT 23.5; ARTERIAL BLOOD GAS BASE EXCESS -3.1 (-2-2); ARTERIAL BLOOD GAS HCO3 22.2 meq/L (22-26); ARTERIAL BLOOD GAS PCO2 41.2 mmHg (35-45); ARTERIAL BLOOD GAS PO2 87.3 mmHg (80-100); ARTERIAL BLOOD GAS pH 7.35 (7.35-7.45)
--- NOTE | 2023-03-21 05:33 | NUR ---
Began sedation vacation at 0408, see IV drip titrations. Patient became increasingly restless, although he does not appear alert nor is he following verbal commands or tracking with eyes. Although open, patient's eyes continue to be rolled back. Patient noted to be pulling extremities towards the chest. Sedation resumed at previously infusing levels.
[2023-03-21 05:35] LABS: HEMATOCRIT 20.8 % (42.0-52.0); MEAN CORPUSCULAR HEMOGLOBIN 33 pg (27-31)
[2023-03-21 05:36] LABS: HEMOGLOBIN 6.5 g/dl (13.5-18.0)
[2023-03-21 05:38] LABS: CALCIUM 7.9 mg/dL (8.4-10.2); CREATININE, serum 1.29 mg/dL (0.72-1.25); MAGNESIUM 2.5 mg/dL (1.6-2.6); PHOSPHOROUS 2.5 mg/dL (2.3-4.7); POTASSIUM 3.4 mmol/L (3.5-4.5)
[2023-03-21] MEDS ORDERED: Potassium Chloride 100 ML IV SCH (06:30)
--- NOTE | 2023-03-21 08:05 | NUR ---
PROPOFOLTURNED OFF PER DR WALKER ORDERS. PRN VERSED PUSHES ORDERED.
[2023-03-21] MEDS ORDERED: Midazolam 2 MG/2 ML VIAL IV PRN (08:30)
--- NOTE | 2023-03-21 09:54 | NUR ---
PATIENT REMAINS INTUBATED. CENTRAL LINE IN RIGHT INTERNAL JUGULAR AND PERIPHERAL LINE IN RIGHT FOREARM. AMIODARONE RUNNING AT 0.5 (17.3ML). FENTANYL RUNNING AT 75 (3.8ML). PROPOFOL RUNNING AT 20 (7.6ML CLINIMIX RUNNING AT 42 AND LIPIDS AT 11. MARCOS CATHETER REMAINS IN PLACE AND DRAINING WELL.
--- NOTE | 2023-03-21 12:31 | NUR ---
PATIENT TOLERATED UNIT OF PRBC'S WELL, NO ADVERSE REACTIONS. INFUSION ENDED AT 12:05. WILL CHECK H&H AT 1305.
[2023-03-21 13:24] LABS: HEMATOCRIT 22.7 % (42.0-52.0); HEMOGLOBIN 7.6 g/dl (13.5-18.0)
--- NOTE | 2023-03-21 13:53 | NUR ---
addiction social worker was informed patient will have a family meeting tomorrow at 8:30am. SW faxed clinical updates to [facility]. Discharge Plan: tbd
[2023-03-21] MEDS ORDERED: Multivitamins 1 VIAL,Folic Acid 1 MG,Thiamine 200 MG in TPN (Clinimix-E 8%/14%) 1,000 ML IV SCH (16:00)
--- NOTE | 2023-03-21 17:30 | NUR ---
PROPOFOL IS OFF, GIVING PRN VERSED PUSHES FOR AGITATION. ONLY FENTANYL INFUSING CURRENTLY. PATIENT BECOMES AGITATED, OPENS EYES SPONTANEOUSLY, OPENS EYES BUT DOES NOT FOLLOW COMMANDS.
--- NOTE | 2023-03-21 19:20 | NUR ---
Received report from Raeann. Patient resting quietly in bed. Family at bedside. Patient remains on ventilator, tolerating well. Continues to receive amio and fentanyl drips, see IV drip titrations. Rectal temp of 99.7F, all other vitals within normal limits. Patient responsive to painful stimuli but is not tracking with eyes or following verbal commands at this time.
[2023-03-22] VITALS: BP 125/54; PULSE 87; TEMP 99.9
[2023-03-22 04:00] VITALS: BP 120/55; PULSE 71; TEMP 99.7
[2023-03-22] MEDS ORDERED: Midazolam 2 MG/2 ML VIAL IV ONE (05:15)
--- NOTE | 2023-03-22 05:21 | NUR ---
As this RN was completing 0 assessment, patient noted to be more alert and restless. Patient opening eyes spontaneously but eyes continue to be rolled back and do not track movements. Patient not following verbal commands. Patient noted to be pulling at restraints and gnawing on ET tube. PRN versed administered according to orders. A second dose of versed was administered after about 45 minutes due to continued agitation, see physician notification. Due to the above, no sedation vacation performed at this time.
[2023-03-22 05:25] LABS: CALCIUM 8.2 mg/dL (8.4-10.2); CREATININE, serum 1.12 mg/dL (0.72-1.25); MAGNESIUM 2.7 mg/dL (1.6-2.6)
[2023-03-22 05:45] LABS: MEAN CORPUSCULAR HGB CONC 33 g/dl (33.0-37.0); MEAN PLATELET VOLUME 10.6 fl (7.4-10.4); PLATELET COUNT 215 K/mm3 (130-400); RED BLOOD COUNT 2.53 M/mm3 (4.20-5.60); REDCELL DISTRIBUTION WIDTH-CV 16.2 % (11.5-14.5)
[2023-03-22 06:11] LABS: HEMOGLOBIN 8.3 g/dl (13.5-18.0); MEAN CELL VOLUME 99 fl (80.0-100.0); MEAN CORPUSCULAR HEMOGLOBIN 33 pg (27-31)
[2023-03-22 06:37] LABS: ANISOCYTOSIS 1+; BAND 6 % (0-10); EOSINOPHIL 1 % (0-4); LYMPHOCYTE 7 % (20.0-51.0); NEUTROPHILS 79 % (42.0-75.2); PLATELET ESTIMATE NORMAL (NORMAL)
--- NOTE | 2023-03-22 07:00 | NUR ---
Report received from RADHA Walls. Labs reviewed. IV gtts infusing reveiwed. Pt remains intubated, propofol remains off, PRN versed pushes as needed for agitation. Pt remains in 2 point soft wrists restraints. GOC meeting for planned for this AM. Will continue with POC.
[2023-03-22 08:00] VITALS: BP 125/56; PULSE 67; TEMP 99.3
--- NOTE | 2023-03-22 08:30 | NUR ---
Palliative care consult at this time. Family present - (Divina), daughter (Uma), son-in-law & 2 brothers (Denzel & Sukhwinder). Dr. Allen discussed ICU course, current status & prognosis. Discussed 2 options for patient. 1-Continue aggressive care & proceed with a trach placement that would result in plan for transfer to a LTAC [facility]. 2-Comfort measures. Family discussed that patient would not want a trach or long-term care. Plan to proceed with comfort care when family ready. Ordained Minister notified of plan for comfort & request for support. All questions answered & support provided.
--- NOTE | 2023-03-22 08:55 | NUR ---
day worker attend palliative consult with ICU Director Mariza and many family members. Family and daughter, Uma decided on comfort care status this morning. The family requests the [facility] to visit with them. Family reports, "This is no way to live. He wouldn't want the trach/PEG." Family was all agreeable to this. Discharge Plan: Comfort care
--- NOTE | 2023-03-22 10:18 | NUR ---
D: Initial visit: Clearing Tub Worker was called to room for prayer and comfort. Pt was resting and content with family gathered around. A: Family requested prayer over pt as tough decisions and choices have been made. Clearing Tub Worker talked with family and offered comfort and prayer. Family appreciated the visit. P: Clearing Tub Worker informed family that if they needed anything else to make sure they let their nurse know. Clearing Tub Worker will follow up as needed.
[2023-03-22] MEDS ORDERED: Albuterol 0.083% Neb Soln 2.5 MG/3 ML UD IH PRN (10:30)
[2023-03-22] MEDS ORDERED: LORazepam 2 MG/ML 1 ML VIAL IV PRN (10:30)
[2023-03-22] MEDS ORDERED: Scopolamine 1 MG Delivered 3-Day PATCH TD SCH (10:30)
[2023-03-22] MEDS ORDERED: Morphine 4 MG/ML VIAL IV PRN (10:30)
[2023-03-22] MEDS ORDERED: Ondansetron 4 MG/2 ML VIAL IV PRN (10:30)
--- NOTE | 2023-03-22 10:34 | NUR ---
Call placed to [facility]. Patient is not a current tissue/organ candidate due to active diagnosis of Splenic Flexure Cancer. May go ahead and compassionately extubate patient and call back with time of . Case # [id number]
--- NOTE | 2023-03-22 10:55 | NUR ---
Pt extubated at 1051 per family wishes. PRN morphine and ativan given for comfort. Family at bedside.
--- NOTE | 2023-03-22 11:12 | NUR ---
TOMoe at 1108. Cardiopulmonary cessation noted by this RN and RADHA Hawk. Notified housekeeper home and Dr. Luly Allen. Family at bedside, ed services offered but refused at this time.
--- NOTE | 2023-03-22 11:45 | NUR ---
Call placed to [facility] to make aware to time of . Due to dx of cancer; patient will not be candidate for donation of tissue. Sent referral on to [facility]. Will await phone call from them for further evaluation
--- NOTE | 2023-03-22 11:47 | NUR ---
Dr. Butt office made aware of patient's and the time of .
--- NOTE | 2023-03-22 14:29 | NUR ---
Call placed to [facility]. 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 Call placed to home at this time.
--- NOTE | 2023-03-22 15:48 | NUR ---
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 Paperwork signed and facesheet sent with home.
== END 2023-03-22 15:48 | disposition expired | DRG 329 ==
LOC: INPTSU 03-13 11:11 → SURG 03-13 13:30 → ICU 03-16 17:29
PROVIDERS: Internal Medicine; Internal Medicine Pulmonary Disease; ADMIT Surgery
PROC: 0DTL4ZZ Resection of Transverse Colon, Percutaneous Endoscopic Approach (ICD-10-PCS; 2023-03-13)
PROC: 8E0W4CZ Robotic Assisted Procedure of Trunk Region, Percutaneous Endoscopic Approach (ICD-10-PCS; 2023-03-13)
PROC: 0JH602Z Insertion of Monitoring Device into Chest Subcutaneous Tissue and Fascia, Open Approach (ICD-10-PCS; principal; 2023-03-13 13:30)
DX: C18.4 Malignant neoplasm of transverse colon (principal); E43 Unspecified severe protein-calorie malnutrition; J69.0 Pneumonitis due to inhalation of food and vomit; Z68.1 Body mass index [BMI] 19.9 or less, adult; K46.9 Unspecified abdominal hernia without obstruction or gangrene; G20.A1 Parkinson's disease without dyskinesia, without mention of fluctuations; Z86.73 Personal history of transient ischemic attack (TIA), and cerebral infarction without residual deficits
CPT/HCPCS: A4314; A9284; C1751; C1764; C9113; J0282; J0330; J0690; J0737; J1100; J1644; J1650; J1836; J2250; J2270; J2371; J2405; J2543; J2704; J2795; J3010; J3411; J3475; J3480; J7030; J7060; J7120; J7121; P9016; Q3014; Q9967